=== PATIENT | male | born 1995 | race African-American/Black ===

== ENCOUNTER 2024-11-08 04:28 | Emergency (ER) | payer SELFPAY ==
[~2024-11-08] VITALS: Ht 175.3 cm; Wt 55.0 kg
[2024-11-08 04:38] VITALS: BP 106/81; PULSE 77; RESP 18; TEMP 36.7; O2SAT 97
== END 2024-11-08 06:18 | disposition home or self-care (01) ==
LOC: EDBD 04:28 → ER 04:28
DX: Z00.8 Encounter for other general examination (principal)
CPT/HCPCS: 99283; Z7610 ×2